=== PATIENT | female | born 1960 | race African-American/Black ===

== ENCOUNTER 2017-09-14 18:26 | Inpatient (IN) | payer OTHER ==
[~2017-09-14] VITALS: Ht 162.6 cm; Wt 122.5 kg
--- NOTE | ~2017-09-14 | HC ---
[facility] [place] [address] CONSULTATION Name: RADHA SOLARES Room #: 359-P ADM IN M.R.#: [id number] Admission: 09/14/17 Attend Phys: Tyrell Vasquez MD Discharge: Date of : 58 Report #: [id number] THIS REPORT FOR: //name// CC: Tom DANIEL physician/PCP Tyrell Vasquez DATE OF SERVICE: 09/16/2017 REASON FOR CONSULTATION: Right-sided facial swelling. HISTORY OF PRESENT ILLNESS: The patient is a 57-year-old female who has a 5-day history of facial swelling and pain. She says that she started this Wednesday with a bronchitic episode and was placed on prednisone 40 mg, returned the next day with a spot overlying the body of the mandible just off the right of the oral commissure. She thought it was maybe a bug bite and had increasing swelling over the entire time that she was taking the steroid. She was admitted to the hospital. A CT scan was obtained showing stranding swelling of the parotid and around the masseter in the subcutaneous tissues with submandibular adenopathy. She has had increased pain and no significant drainage. She does not report any history of exposure to mumps recently. She is being treated for bronchitis. She does state that she blows her nose and there is some yellow color to it. The antibiotic that she has currently been given does not appear to be making things better. I have been asked to evaluate her for potential for abscess formation. PAST MEDICAL HISTORY: Significant for hepatitis C, cirrhosis, lupus, diabetes, seizure disorder, TIA, PFO, fibromyalgia. MEDICATIONS: Listed in the MAR. She had been on Synthroid, metformin, magnesium, multivitamin, Cozaar, fish oil, Plavix, Lipitor, and magnesium prior to admission and had been on prednisone 40 mg daily for 3 days prior to admission. ALLERGIES: STADOL, CYMBALTA AND GABAPENTIN. FAMILY HISTORY: Noncontributory. SOCIAL HISTORY: Noncontributory. REVIEW OF SYSTEMS: Significant for right-sided facial pain and swelling. PHYSICAL EXAMINATION: GENERAL: She is a well-developed female who is resting comfortably, lying semi-supine in a left lateral position in bed when I walked into the room, she sits up and is conversant, alert and aware. [address] [address] CONSULTATION Name: RADHA SOLARES Naida Room #: 359-P [facility] IN ..#: [id number] Admission: 09/14/17 Attend Phys: Tyrell Vasquez MD Discharge: Date of : 58 Report #: [id number] HEENT: Normocephalic, atraumatic. She has significant right-sided facial swelling. External auditory canals normal bilaterally. She has slightly discolored yellow mucus present in the nasal cavity. Oral cavity: She has several removed teeth, mostly just has incisors and premolars on the maxilla and incisors on the mandible. Palpation of all of her teeth do not reveal a single spot of significant increased pain. Since this duct on the right side with palpation does exude a creamy white material with significant manipulation of the parotid which is painful, submandibular adenopathy is palpated on the right, there is no evidence of fluctuance. IMPRESSION: Acute parotitis in the face of diabetes. PLAN: She is going to continue her wide spectrum antibiotics. I have added Decadron 8 mg q.6 hours for the next 24 hours and we will see how much this improves things in the next 24 hours. Hopefully, she is significantly better by tomorrow. Without the evidence of significant palpation and she does not appear toxic at this time, I do not think that she needs to be reimaged today, but will potentially need reimaging tomorrow if she has not had dramatic response to the steroid. She can protrude her tongue and I do not feel she is at significant risk for Isaias's angina in the next 12-24 hours. By: [id number] Suraj Ortiz MD /nt
--- NOTE | ~2017-09-14 | HC ---
[facility] [place] [address] CONSULTATION Name: RADHA SOLARES Room #: 359-P ADM IN M.R.#: [id number] Admission: 09/14/17 Attend Phys: Tyrell Vasquez MD Discharge: Date of : 58 Report #: [id number] THIS REPORT FOR: //name// CC: FREDY physician/PCP Tyrell Vasquez TYPE OF REPORT: Infectious diseases consultation. REASON FOR CONSULTATION: I was asked to evaluate concerning right facial and soft tissue infection. HISTORY OF PRESENT ILLNESS: The patient is a 57-year-old diabetic with underlying history of hepatitis C and cirrhosis, presents with acute onset of right facial pain, swelling, fever and chills. This onset was 4 days ago. Prior to that, she was seen in the outpatient clinic for bronchitis and placed on prednisone. No recent antibiotics. The onset of her infection, she noted some swelling to the right lower cheek towards the chin. Thought, she had a spider bite or insect bite. Blood glucose levels were in the 200s. She does take insulin. She has had no recent dental work. She has had some dental pain, but mostly on the left lower teeth. No trauma. No travel. She does report a history of lupus, but she has had no Sjogren's type symptoms. ALLERGIES: STADOL, CYMBALTA and GABAPENTIN. MEDICATIONS: Prior to admission included Lipitor, magnesium, multivitamin, Cozaar, fish oil, Plavix and Lantus insulin. Had previously been on Synthroid and also has been on metformin. Placed on vancomycin at the time of admission. PAST MEDICAL HISTORY: Fibromyalgia, for which she is on disability. Hepatitis C with cirrhosis. This has been treated. Lupus, diabetes, seizure disorder, TIA and PFO. FAMILY HISTORY: Noncontributory. SOCIAL HISTORY: Nonsmoker. No significant alcohol intake. Lives alone. REVIEW OF SYSTEMS: Denies any chest pain, nausea, vomiting, diarrhea, dysuria or frequency. No other skin lesions. PHYSICAL EXAMINATION: VITAL SIGNS: Afebrile and hemodynamically stable. GENERAL: Alert and cooperative. Obese. HEENT: Right facial swelling down into her neck. Eyes unremarkable. Nares unremarkable. Mouth posterior molars had been extracted. She had mild tenderness to her dentition and anterior left teeth. No swelling to the floor of her mouth. Tongue was unremarkable. She had a large amount of swelling to the right face including the parotid region. This was exquisitely tender. I [facility] [address] [place] [address] CONSULTATION Name: RADHA SOLARES Room #: 359-P [place] [facility].#: [id number] Admission: 09/14/17 Attend Phys: Tyrell Vasquez MD Discharge: Date of : 58 Report #: [id number] was unable to express any fluid from the duct. NECK: She had tenderness through the right neck with adenopathy palpable. She had a palpable goiter. No axillary adenopathy. CHEST: Clear. HEART: Regular, without murmur. ABDOMEN: Soft and nontender. EXTREMITIES: Unremarkable. RADIOLOGICAL DATA: CT scan of the neck showed no fluid collection. She had diffuse cellulitis throughout the right face and submandibular region. The right parotid was also inflamed. She had a goiter. LABORATORY DATA: Blood cultures negative to date. Sodium 139, potassium 4, bicarbonate 25 and creatinine 0.8. Hemoglobin 10; WBC 27.4 and platelet count 187,000. IMPRESSION AND RECOMMENDATIONS: A 57-year-old diabetic with underlying history of cirrhosis from hepatitis C, presents now with extensive right facial soft tissue infection. I am suspecting onset was from lesion to her lower face but cannot yet rule out parotid infection. No evidence of apical abscess on CT scan. She has marked leukocytosis, which is not yet responded to antibiotic therapy. Recommend adding clindamycin and Unasyn. Screen for methicillin-resistant Staphylococcus aureus. ENT evaluation. If no improvement, we will need to reimage tomorrow. Elevate tonight along with K-pad. We will check chest x-ray and repeat laboratory studies in the a.m. <ELECTRONICALLY SIGNED> By: Saeed Garcia MD 09/16/17 1010 [id number] Saeed Garcia MD /nt
[~2017-09-14 18:26] MED LIST: ASPIRIN EC325 M1 PO; GLUCOPHAGE1000 MG PO; GUAIFEN-CODEINE10 ML PO; LANTUS SOL100 UNIT/1 SQ; NEXIUM40 MG PO; NOVOLOG100 UNIT/1 SUBQ
[2017-09-14 18:40] VITALS: BP 141/85
[2017-09-14] MEDS ORDERED: PLAVIX 75 MG TA75 M1 PO (18:45)
[2017-09-14] MEDS ORDERED: SYNTHROID150 MCG PO (18:46)
[2017-09-14 19:57] LABS: HEMATOCRIT 34.9 % (37.0-47.0); HEMOGLOBIN 10.8 gm/dL (12.0-15.0); MCH 20.7 pg (26.0-34.0); MCV 66.8 fL (80.0-100.0); PLATELET COUNT 203 thou/uL (150-400); RBC 5.22 mil/uL (4.20-5.00); RDW 16.3 % (10.5-14.5); WBC 28.1 thou/uL (4.0-11.0)
[2017-09-14 20:06] LABS: CALCIUM 9.3 mg/dL (8.5-10.1); POTASSIUM 3.9 mmol/L (3.5-5.1)
[2017-09-14] MEDS ORDERED: LANTUS100 UNIT/M SUBQ (20:10)
[2017-09-14 20:12] LABS: ALBUMIN 3.4 g/dL (3.4-5.0); TOTAL BILIRUBIN 0.6 mg/dL (<0.1-1.0); TOTAL PROTEIN 7.8 g/dL (6.4-8.2)
[2017-09-14 20:27] LABS: ABSOLUTE NEUTROPHILS 24.4 thou/uL (1.4-8.2)
[2017-09-14 20:29] LABS: ANISOCYTOSIS 1+; HYPOCHROMASIA 1+; MICROCYTES 2+; OVALOCYTES 1+
[2017-09-14 22:24] VITALS: BP 143/64
[2017-09-14] MEDS ORDERED: LIPITOR 20 MG T20 M1 PO (23:26)
[2017-09-14] MEDS ORDERED: MAGNESIUM500 MG PO (23:26)
[2017-09-14] MEDS ORDERED: PRENATAL ONE T1 EACH PO (23:27)
[2017-09-14] MEDS ORDERED: COZAAR 25MG TAB25 M1 PO (23:28)
[2017-09-14] MEDS ORDERED: FISH OIL 1,001000 M2 PO (23:28)
[2017-09-15 05:19] VITALS: BP 156/79
[2017-09-15 05:57] LABS: HEMATOCRIT 32.8 % (37.0-47.0); MCH 20.7 pg (26.0-34.0); MCHC 30.5 g/dL (28.0-37.0); MCV 67.7 fL (80.0-100.0); RBC 4.84 mil/uL (4.20-5.00); WBC 27.4 thou/uL (4.0-11.0)
[2017-09-15 06:09] LABS: CALCIUM 8.6 mg/dL (8.5-10.1); CREATININE 0.8 mg/dL (0.6-1.0)
[2017-09-15 07:40] VITALS: BP 150/78
[2017-09-15 11:30] VITALS: BP 155/70
[2017-09-15 15:20] VITALS: BP 154/79
[2017-09-15 19:20] VITALS: BP 145/80
[2017-09-15 23:40] VITALS: BP 131/57
[2017-09-16 04:00] VITALS: BP 143/63
[2017-09-16 06:00] LABS: HEMATOCRIT 30.8 % (37.0-47.0); HEMOGLOBIN 9.4 gm/dL (12.0-15.0); MCH 20.7 pg (26.0-34.0); MCHC 30.6 g/dL (28.0-37.0); MCV 67.7 fL (80.0-100.0); PLATELET COUNT 159 thou/uL (150-400); RBC 4.55 mil/uL (4.20-5.00); RDW 16.8 % (10.5-14.5); WBC 23.4 thou/uL (4.0-11.0)
[2017-09-16 06:11] LABS: CALCIUM 8.3 mg/dL (8.5-10.1); CREATININE 0.8 mg/dL (0.6-1.0); POTASSIUM 3.5 mmol/L (3.5-5.1)
[2017-09-16 07:46] LABS: ANISOCYTOSIS 1+
[2017-09-16 07:47] LABS: HYPOCHROMASIA 2+; MICROCYTES 2+; OVALOCYTES FEW
[2017-09-16 08:20] VITALS: BP 126/70
[2017-09-16 16:50] VITALS: BP 154/87
[2017-09-16 19:25] VITALS: BP 160/93
[2017-09-17 04:15] VITALS: BP 161/64
[2017-09-17 07:30] VITALS: BP 153/77
[2017-09-17 11:56] LABS: ABSOLUTE NEUTROPHILS 14.8 thou/uL (1.4-8.2); BASOPHILS 0.4 % (0.0-2.0); HEMATOCRIT 33.4 % (37.0-47.0); HEMOGLOBIN 10.2 gm/dL (12.0-15.0); LYMPHOCYTES 10.1 % (24.0-44.0); MCH 20.6 pg (26.0-34.0); MCHC 30.5 g/dL (28.0-37.0); MCV 67.5 fL (80.0-100.0); MONOCYTES 2.6 % (1.0-8.0); POLYS 86.9 % (36.0-66.0); RBC 4.96 mil/uL (4.20-5.00); RDW 16.9 % (10.5-14.5); WBC 17.1 thou/uL (4.0-11.0)
[2017-09-17 12:18] VITALS: BP 153/70
[2017-09-17 13:09] LABS: ANISOCYTOSIS 1+; LARGE PLATELETS RARE; MICROCYTES 1+; PLATELET COUNT 207 thou/uL (150-400)
[2017-09-17 13:13] LABS: CALCIUM 9.1 mg/dL (8.5-10.1); CREATININE 0.9 mg/dL (0.6-1.0); POTASSIUM 3.7 mmol/L (3.5-5.1)
[2017-09-17 15:45] VITALS: BP 159/57
[2017-09-17 20:08] VITALS: BP 162/74
[2017-09-18 04:00] VITALS: BP 143/65
[2017-09-18 08:00] VITALS: BP 177/92
[2017-09-18 12:00] VITALS: BP 169/85
[2017-09-18 16:00] VITALS: BP 174/91
[2017-09-18 19:40] VITALS: BP 172/75
[2017-09-18 23:20] VITALS: BP 166/70
[2017-09-19 03:55] VITALS: BP 179/78
[2017-09-19 04:41] LABS: HEMATOCRIT 30.7 % (37.0-47.0); HEMOGLOBIN 9.5 gm/dL (12.0-15.0); MCH 20.7 pg (26.0-34.0); MCHC 30.9 g/dL (28.0-37.0); MCV 66.9 fL (80.0-100.0); RBC 4.59 mil/uL (4.20-5.00); RDW 16.8 % (10.5-14.5); WBC 19.3 thou/uL (4.0-11.0)
[2017-09-19 04:53] LABS: ALBUMIN 2.5 g/dL (3.4-5.0); CALCIUM 9.2 mg/dL (8.5-10.1); PHOSPHORUS 4.9 mg/dL (2.5-4.9); POTASSIUM 4.1 mmol/L (3.5-5.1)
[2017-09-19 07:09] VITALS: BP 188/102
[2017-09-19 09:04] VITALS: BP 182/89
[2017-09-19 12:00] VITALS: BP 186/71
[2017-09-19 17:27] VITALS: BP 167/80
[2017-09-19 19:15] VITALS: BP 160/79
[2017-09-20 04:15] VITALS: BP 163/58
[2017-09-20 08:00] VITALS: BP 155/98
[2017-09-20 12:00] VITALS: BP 148/88
[2017-09-20] MEDS ORDERED: NORVASC10 MG PO (17:09)
[2017-09-20] MEDS ORDERED: FLUCONAZOLE 10100 MG PO (17:09)
[2017-09-20] MEDS ORDERED: HYDROCODONE-AP1 EAC6 PO (17:10)
[2017-09-20] MEDS ORDERED: DEXAMETHASONE1 MG PO (17:12)
[2017-09-20] MEDS ORDERED: AUGMENTIN 875-1 EACH PO (17:13)
[2017-09-20 17:26] VITALS: BP 148/88
== END 2017-09-20 18:07 | disposition home or self-care (01) | DRG 871 ==
LOC: ER 18:26 → 3W 21:31 → EROBS 21:31 → 3W 23:19
PROVIDERS: Emergency Medicine; Hospitalist; Nurse Practitioner Family; Specialist
PROC: 05HY33Z Insertion of Infusion Device into Upper Vein, Percutaneous Approach (ICD-10-PCS; principal; 2017-09-17)
DX: A41.9 Sepsis, unspecified organism (principal); E43 Unspecified severe protein-calorie malnutrition; L03.211 Cellulitis of face; G45.9 Transient cerebral ischemic attack, unspecified; Z68.42 Body mass index [BMI] 45.0-49.9, adult; Z88.8 Allergy status to other drugs, medicaments and biological substances; Z86.73 Personal history of transient ischemic attack (TIA), and cerebral infarction without residual deficits; E11.9 Type 2 diabetes mellitus without complications; K11.21 Acute sialoadenitis; K74.60 Unspecified cirrhosis of liver; J40 Bronchitis, not specified as acute or chronic; I10 Essential (primary) hypertension; E78.5 Hyperlipidemia, unspecified; G40.909 Epilepsy, unspecified, not intractable, without status epilepticus; E66.9 Obesity, unspecified
CPT/HCPCS: 10879; 27000

== ENCOUNTER 2018-03-25 16:07 | Emergency (ER) | payer OTHER ==
[~2018-03-25] VITALS: Ht 162.6 cm; Wt 112.0 kg
--- NOTE | ~2018-03-25 | EKG ---
[address] [address] ELECTROCARDIOGRAM REPORT Name: RADHA SOLARES Room #: [facility]#: [id number] Admission: 03/25/18 Attend Phys: Discharge: 03/25/18 Date of : 58 Report #: [id number] THIS REPORT FOR: //name// [facility] ED Test Date: 2018-03-25 Test Time: 16:09:59 Pat Name: RADHA SOLARES Department: Room: Gender: F [employer]: WG : 1960 Requested By: Riley Bennett Order Number: [id number] MD: Chaz Palmer Measurements Intervals [place] Rate: 93 P: 33 MA: 150 QRS: -10 QRSD: 92 T: 10 QT: 359 QTc: 447 Interpretive Statements Sinus rhythm Abnormal R-wave progression, early transition Left ventricular hypertrophy Compared to ECG 01/16/2017 13:13:17 No significant changes Electronically Signed On 03-26-2018 10:58:59 VERIFY REP by Chaz Palmer [email or web address] <ELECTRONICALLY SIGNED> By: Chaz Palmer MD, [facility] 03/26/18 1058 [id number] 160 Chaz Palmer MD, FAC /EPI
[~2018-03-25 16:07] MED LIST changes: +AUGMENTIN 875-1 EACH PO; +COZAAR 25MG TAB25 M1 PO; +DEXAMETHASONE1 MG PO; +FISH OIL 1,001000 M2 PO; +FLUCONAZOLE 10100 MG PO; +HYDROCODONE-AP1 EAC6 PO; +LANTUS100 UNIT/M SUBQ; +LIPITOR 20 MG T20 M1 PO; +MAGNESIUM500 MG PO; +NORVASC10 MG PO; +PLAVIX 75 MG TA75 M1 PO; +PRENATAL ONE T1 EACH PO; +SYNTHROID150 MCG PO
[2018-03-25] MEDS ORDERED: NOVOLOG100 UNIT/1 SUBQ (16:22)
[2018-03-25] MEDS ORDERED: LEVOTHYROXINE500 MCG PO (16:23)
[2018-03-25] MEDS ORDERED: OXYCONTIN15 MG PO (16:23)
[2018-03-25] MEDS ORDERED: FLEXERIL PO (16:24)
[2018-03-25 16:25] LABS: HEMATOCRIT 36.8 % (37.0-47.0); HEMOGLOBIN 11.3 gm/dL (12.0-15.0); MCH 20.4 pg (26.0-34.0); MCHC 30.8 g/dL (28.0-37.0); MCV 66.2 fL (80.0-100.0); PLATELET COUNT 234 thou/uL (150-400); RBC 5.55 mil/uL (4.20-5.00); WBC 12.6 thou/uL (4.0-11.0)
[2018-03-25 16:32] LABS: ANION GAP 8 mmol/L (7-16); BUN 10 mg/dL (7-18); CALCIUM 9.4 mg/dL (8.5-10.1); CHLORIDE 106 mmol/L (98-107); CO2 24 mmol/L (21-32); CREATININE 0.8 mg/dL (0.6-1.0); GLUCOSE 148 mg/dL (74-106); POTASSIUM 3.7 mmol/L (3.5-5.1); SODIUM 138 mmol/L (136-145)
[2018-03-25 16:41] LABS: TROPONIN-I <0.06 ng/mL (<0.06)
[2018-03-25 16:44] LABS: ABSOLUTE NEUTROPHILS 6.9 thou/uL (1.4-8.2); ANISOCYTOSIS 3+; MICROCYTES 2+
[2018-03-25 17:55] VITALS: BP 128/71
== END 2018-03-25 17:56 | disposition home or self-care (01) ==
LOC: ER 16:07
PROVIDERS: Emergency Medicine
DX: R07.89 Other chest pain (principal); R05 Cough; R42 Dizziness and giddiness; M79.7 Fibromyalgia; E11.9 Type 2 diabetes mellitus without complications; M32.9 Systemic lupus erythematosus, unspecified; K74.60 Unspecified cirrhosis of liver; Z88.8 Allergy status to other drugs, medicaments and biological substances